=== PATIENT | male | born 1985 | race Native Hawaiian/Other Pacific Islander ===

== ENCOUNTER 2021-11-06 23:49 | Emergency (ER) | payer OTHER ==
[~2021-11-06] VITALS: Ht 177.8 cm; Wt 77.1 kg
[2021-11-07 00:53] LABS: PLATELET COUNT 288 K/uL (142-355)
[2021-11-07 01:10] LABS: POTASSIUM 3.8 mmol/L (3.6-5.2)
[2021-11-07 01:30] VITALS: BP 125/85; TEMP 99.1
== END 2021-11-07 01:30 | disposition home or self-care (01) ==
LOC: ED 23:49
PROVIDERS: Hospitalist
DX: I16.0 Hypertensive urgency (principal); R00.2 Palpitations
CPT/HCPCS: 36415; 80053; 82550; 83880; 84484; 85027; 85379; 85610; 85730; 93005; 99283

== ENCOUNTER 2022-05-16 15:31 | Observation (INO) | payer OTHER ==
[~2022-05-16] VITALS: Ht 177.8 cm; Wt 78.1 kg
[2022-05-16 15:40] VITALS: BP 146/101; TEMP 96.7
[2022-05-16 15:58] LABS: PLATELET COUNT 255 K/uL (142-355)
[2022-05-16 16:06] LABS: POTASSIUM 3.7 mmol/L (3.6-5.2)
[2022-05-16 16:29] VITALS: BP 118/86
--- NOTE | 2022-05-16 17:29 | NUR ---
PATIENT ARRIVED TO [facility] 1114 VIA WHEELCHAIR ON ROOM AIR WITH A 22G IN LEFT AC. ALERT & ORIENTED 4X, AMBULATORY. VITALS OBTAINED, PATIENT DENIES ANY CHEST PAIN OR DISCOMFORT AT THIS TIME. TELEMETRY PLACED ON PATIENT. BED LOCKED IN LOWEST POSITION, AND CALL LIGHT WITHIN REACH. WILL CONTINUE TO MONITOR.
[2022-05-16 17:35] VITALS: BP 145/95; TEMP 99.1; Ht 177.8 cm; Wt 78.1 kg
--- NOTE | 2022-05-16 19:30 | NUR ---
PATIENT SITTING UP IN BED, DENIES PAIN AT THIS TIME. ASKED CLIENT ABOUT PRN ANXIETY MEDS. STATED THAT HE DOESN'T NORMALLY TAKE MEDICATIONS TO AID SLEEP, SO HE DIDN'T WANMT TO TAKE ANYTHING TONIGHT.
[2022-05-16 20:00] VITALS: BP 137/93; TEMP 98.7
--- NOTE | 2022-05-16 20:00 | NUR ---
CLIENT'S PARENTS CAME TO VISIT. INFORMED CLIENT OF FIRST SET OF CARDIAC RESULTS. CLIENT SITTING UP IN BED. EDUCATED CLIENT OF CALL LIGHT USE IF NEEDED.
[2022-05-17] VITALS: BP 130/82; TEMP 99.2
[2022-05-17 04:00] VITALS: BP 121/85; TEMP 98.5
--- NOTE | 2022-05-17 06:35 | NUR ---
Patient was admitted with CP RO AR, HTN, and is a 36 YOM, LDL 121 elevated and D-Dimer depressed, TP 8.5 elevated, anxious with HTN and seems to happen after morning coffee and BP 137/93 and reviewed all medications and see therapy notes. 5'10" at 172.4 lbs. and BMI at 24.7 and is wnls and IBW = 166+/-10% (149 to 183 lbs.) and kcal needs for IBW x 25 = 1900, x 30 = 2300, x 35 = 2600, and x 40 = 3000 kcal/day, protein needs x .8 to 1.5 = 60 to 113 grams per day and fluids x 25 to 40 = 1900 to 3000 ml/cc per day and patient is 104% of IBW, RD available as needed. RD Recommendations: 1-Monitor labs 2-PT to work with the patient 3-OT to work with the patient 4- Make sure hydrated 5-[place] food preferences and if any food allergens and so note on the diet card and serve according offering substitutes 6- CLD x 24 hours and then advance to a 7-FLD x 48 hours and then to a 8-Cardiac or Low Sodium and avoid all caffeine RD available as needed
[2022-05-17 07:40] VITALS: BP 135/91; TEMP 98.7
[2022-05-17 08:00] VITALS: BP 135/91; TEMP 98.7
[2022-05-17 11:40] VITALS: BP 117/83; TEMP 99.1
[2022-05-17 12:00] VITALS: BP 117/83; TEMP 99.1
--- NOTE | 2022-05-17 14:04 | NUR ---
DR. GORMAN PRESENT IN ROOM TO SPEAK WITH PATIENT CONCERNING PLAN OF CARE.PT WILL BE DISCHARGED HOME TODAY WILL BE SCHEDULED AN APPT WITH DR. PRICE AT [facility].THEY ARE TO CALL PATIENT WITH AN APPT TIME.CC
--- NOTE | 2022-05-17 14:15 | NUR ---
DISCHARGED INSTRUCTIONS GIVEN AND SIGNED.DRHarlanOFFICE WILL CONTACT PATIENT WITH APPT TIME.SALINE LOCK REMOVED APPLIED 2X2 SECURED WITH TAPE.TELE REMOVED RETURNED TO [facility] DESK.[facility]
== END 2022-05-17 14:23 | disposition home or self-care (01) ==
LOC: ED 15:31 → MED/SURG 16:20
PROVIDERS: Hospitalist; ADMIT Internal Medicine; ATTEND Internal Medicine
DX: R07.89 Other chest pain (principal); I10 Essential (primary) hypertension; R00.2 Palpitations
CPT/HCPCS: 36415; 80053; 80061; 82550; 83880; 84484; 85027; 85379; 85610; 85730; 87635; 93005; 96372; 99220; 99284; G0378; J1650; J2270; U0003